=== PATIENT | female | born 1995 | race Caucasian/White ===

== ENCOUNTER 2022-05-08 15:08 | Emergency (ER) | payer OTHER ==
[~2022-05-08] VITALS: Ht 152.4 cm; Wt 53.5 kg
[~2022-05-08 15:08] MED LIST: AMOX500 PO; CODGUAEL PO; HYDACE25S PR; PROM25 PO; RXPROM25 PO
== END 2022-05-08 15:26 | disposition home or self-care (01) ==
LOC: ER 15:08
DX: B85.0 Pediculosis due to Pediculus humanus capitis (principal)
CPT/HCPCS: 99282